=== PATIENT | male | born 1980 | race Two or more races ===

== ENCOUNTER 2025-03-13 13:16 | Inpatient (IN) | payer OTHER ==
[~2025-03-13] VITALS: Ht 172.7 cm; Wt 108.4 kg
[~2025-03-13 13:16] MED LIST: METRONIDAZOLE 500 MG PREMIX 100 ML IV SCH
[2025-03-13 13:26] VITALS: O2SAT 98
[2025-03-13] MEDS: MAGNESIUM/ALUMINUM HYDROXIDE/SIMETHICONE 30ML UDC PO ONE (14:02)
[2025-03-13] MEDS: KETOROLAC 15MG/ML VIAL IV ONE (14:43)
[2025-03-13] MEDS: SODIUM CHLORIDE 0.9% 1,000 ML IV ONE (14:44)
[2025-03-13] MEDS: ONDANSETRON HCL 4MG/2ML INJ IV ONE ×2 (14:44→16:42)
[2025-03-13] MEDS: ACETAMINOPHEN 325MG TABLET PO ONE (14:46)
[2025-03-13 15:07] LABS: HEMATOCRIT. 45.1 % (42.0-52.0); HEMOGLOBIN. 14.8 g/dL (14.0-18.0); MEAN PLATELET VOLUME 9.6 fl (7.4-10.4); PLATELET 311 x1000/uL (130-400); RED BLOOD CELL COUNT 5.03 mill/uL (4.7-6.1); RED CELL DISTRIBUTION WIDTH 14.2 % (11.6-14.6)
[2025-03-13 15:21] LABS: CREATININE 0.8 mg/dL (0.6-1.3)
[2025-03-13 15:22] LABS: UREA NITROGEN BLOOD 8 mg/dL (9-23)
[2025-03-13 15:23] LABS: ASPARTATE AMINOTRANSFERASE 442 IU/L (<34)
[2025-03-13 15:24] LABS: BILIRUBIN DIRECT 3.4 mg/dL (<=3.0); BILIRUBIN TOTAL 5.2 mg/dL (0.1-1.0); PROTEIN TOTAL 7.6 g/dL (6.0-8.3)
[2025-03-13 15:47] LABS: CLARITY URINE CLEAR (CLEAR); COLOR URINE DARK YELLOW (YELLOW); GLUCOSE URINE NEGATIVE (NEGATIVE); KETONES URINE 3+ (NEGATIVE); LEUKOCYTE ESTERASE URINE 1+ (NEGATIVE); NITRITE URINE POSITIVE (NEGATIVE); OCCULT BLOOD URINE TRACE (NEGATIVE); PH URINE 5.0 (4.5-8.0); PROTEIN URINE 2+ (NEGATIVE); SPECIFIC GRAVITY URINE 1.026 (1.005-1.030); UROBILINOGEN URINE 1.0 E.U./dL (0.2-1.0)
[2025-03-13 16:00] LABS: BACTERIA URINE 1+; RBC URINE 0-2 /hpf (0-2); SQUAMOUS EPITHELIAL CELL URINE FEW /lpf (RARE/1+)
[2025-03-13 16:09] LABS: LYMPHOCYTES % MANUAL 7.0 % (20.0-50.0); MONOCYTES % MANUAL 7.0 % (2.0-8.0); NEUTROPHILS % MANUAL 86.0 % (45.0-75.0); PLATELET ESTIMATE NORMAL
[2025-03-13] MEDS: SODIUM CHLORIDE 0.9% (SEPSIS BOLUS) IV ONE (16:39)
[2025-03-13] MEDS: METRONIDAZOLE 500 MG PREMIX 100 ML IV ONE (16:42)
[2025-03-13] MEDS: MORPHINE SULFATE 4 MG/ML INJ (FOR IV/IM USE) IV ONE (16:43)
[2025-03-13] MEDS: CEFTRIAXONE 2GM/50ML 50 ML IV ONE (17:51)
[2025-03-13] MEDS ORDERED: CLONIDINE 0.1MG TABLET PO PRN (19:45)
[2025-03-13] MEDS ORDERED: GUAIFENESIN 200MG/10ML SUGAR FREE UDC PO PRN (19:45)
[2025-03-13] MEDS ORDERED: DOCUSATE SODIUM 100MG CAPSULE PO PRN (19:45)
[2025-03-13] MEDS ORDERED: SODIUM CHLORIDE 0.45% 1,000 ML IV SCH (19:45)
[2025-03-13] MEDS ORDERED: MAGNESIUM/ALUMINUM HYDROXIDE/SIMETHICONE 30ML UDC PO PRN (19:45)
[2025-03-13] MEDS ORDERED: LEVOFLOXACIN 500MG PREMIX 100 ML IV SCH (19:45)
[2025-03-13] MEDS ORDERED: IPRATROPIUM/ALBUTEROL 0.5-3(2.5)MG/3ML NEB HHN PRN (19:45)
[2025-03-13] MEDS ORDERED: ONDANSETRON HCL 4MG/2ML INJ IV PRN (19:45)
[2025-03-13] MEDS ORDERED: ACETAMINOPHEN 325MG TABLET PO PRN (19:45)
[2025-03-13] MEDS ORDERED: NALOXONE HCL 0.4MG/ML VIAL IV PRN (20:00)
[2025-03-13 20:15] VITALS: BP 128/74; PULSE 64; RESP 18; TEMP 36.6404
[2025-03-13] MEDS: MORPHINE SULFATE 4 MG/ML INJ (FOR IV/IM USE) IV PRN (22:21)
[2025-03-13] MEDS: ENOXAPARIN 30MG/0.3ML SYR SUBCUT SCH (22:41)
[2025-03-13] MEDS: DEXT 5%/0.45% NACL 1000ML 1,000 ML IV SCH (23:12)
[2025-03-13] MEDS: LEVOFLOXACIN 750MG PREMIX 150ML IV SCH (23:12)
[2025-03-14] VITALS (7 sets, daily range): BP systolic 116–136; BP diastolic 72–79; PULSE 63–102; RESP 16–20; TEMP 36.2–36.6; O2SAT 96–98
[2025-03-14] MEDS: METRONIDAZOLE 500 MG PREMIX 100 ML IV SCH (03:01)
[2025-03-14 08:37] LABS: BASOPHILS % 0.1 % (0.0-2.0); EOSINOPHILS % 0.2 % (0.0-5.0); HEMATOCRIT. 37.4 % (42.0-52.0); HEMOGLOBIN. 12.6 g/dL (14.0-18.0); LYMPHOCYTES % 10.7 % (20.0-50.0); MEAN PLATELET VOLUME 9.4 fl (7.4-10.4); MONOCYTES % 7.0 % (2.0-8.0); NEUTROPHILS % 82.0 % (40.0-76.0); PLATELET 227 x1000/uL (130-400); RED BLOOD CELL COUNT 4.24 mill/uL (4.7-6.1); RED CELL DISTRIBUTION WIDTH 14.0 % (11.6-14.6)
[2025-03-14 09:18] LABS: T4 FREE 1.13 ng/dL (0.89-1.76)
[2025-03-14 09:21] LABS: CREATININE 0.6 mg/dL (0.6-1.3); TRIGLYCERIDE 112 mg/dL (0-150); UREA NITROGEN BLOOD 7 mg/dL (9-23)
[2025-03-14 09:22] LABS: LDL CHOLESTEROL 80 mg/dL (5-100)
[2025-03-14 09:30] LABS: INR 1.0
[2025-03-14] MEDS: ENOXAPARIN 40MG/0.4ML SYR SUBCUT SCH (10:00)
[2025-03-14] MEDS: ACETAMINOPHEN 325MG TABLET PO PRN (11:23)
[2025-03-14] MEDS ORDERED: DEXT 5%/LACTATED RINGERS 1,000 ML IV SCH (12:00)
[2025-03-14] MEDS: LACTATED RINGERS 1,000 ML IV SCH (13:37)
[2025-03-14 22:21] LABS: TROPONIN I HIGH SENSITIVITY < 4 ng/L (3.0-53)
[2025-03-14 22:23] LABS: ASPARTATE AMINOTRANSFERASE 267 IU/L (<34); BILIRUBIN DIRECT 1.0 mg/dL (<=3.0); BILIRUBIN TOTAL 1.8 mg/dL (0.1-1.0); PROTEIN TOTAL 6.1 g/dL (6.0-8.3)
[2025-03-15] VITALS: BP 123/74; PULSE 98; RESP 20; TEMP 36.5; O2SAT 96
[2025-03-15 04:00] VITALS: BP 115/73; PULSE 104; RESP 20; TEMP 36.5; O2SAT 96
[2025-03-15] MEDS: PANTOPRAZOLE 40MG DR TABLET PO SCH (06:33)
[2025-03-15 07:39] LABS: BASOPHILS % 0.1 % (0.0-2.0); EOSINOPHILS % 0.4 % (0.0-5.0); HEMATOCRIT. 36.1 % (42.0-52.0); HEMOGLOBIN. 12.2 g/dL (14.0-18.0); LYMPHOCYTES % 9.4 % (20.0-50.0); MEAN PLATELET VOLUME 9.9 fl (7.4-10.4); MONOCYTES % 8.3 % (2.0-8.0); NEUTROPHILS % 81.8 % (40.0-76.0); PLATELET 204 x1000/uL (130-400); RED BLOOD CELL COUNT 4.10 mill/uL (4.7-6.1); RED CELL DISTRIBUTION WIDTH 13.6 % (11.6-14.6)
[2025-03-15 07:56] LABS: UREA NITROGEN BLOOD < 5 mg/dL (9-23)
[2025-03-15 07:58] LABS: CREATININE 0.7 mg/dL (0.6-1.3)
[2025-03-15 08:00] VITALS: BP 130/77; PULSE 83; RESP 18; TEMP 36.2; O2SAT 97
[2025-03-15 08:00] LABS: ASPARTATE AMINOTRANSFERASE 207 IU/L (<34)
[2025-03-15 08:01] LABS: BILIRUBIN DIRECT 1.0 mg/dL (<=3.0); BILIRUBIN TOTAL 1.9 mg/dL (0.1-1.0); PHOSPHORUS 2.2 mg/dL (2.5-4.9); PROTEIN TOTAL 6.1 g/dL (6.0-8.3)
[2025-03-15 08:40] LABS: HEPATITIS A AB IGM NEGATIVE (Negative)
[2025-03-15 08:41] LABS: HEPATITIS B CORE AB IGM NEGATIVE (Negative); HEPATITIS C AB NON REACTIVE (Neg) (Negative)
[2025-03-15] MEDS ORDERED: METR-167 MT (12:17)
[2025-03-15] MEDS ORDERED: CIPR500S3 PO (12:17)
[2025-03-15] MEDS ORDERED: IBUP-2030 MT (12:17)
[2025-03-15 16:00] VITALS: BP 127/74; PULSE 100; RESP 18; TEMP 36.2; O2SAT 99
[2025-03-15 17:04] VITALS: BP 127/74; PULSE 100; RESP 18; TEMP 97.1
[2025-03-15] MEDS ORDERED: ENOXAPARIN 30MG/0.3ML SYR SUBCUT SCH (21:00)
== END 2025-03-15 19:50 | disposition home or self-care (01) | DRG 444 ==
LOC: ER 13:42 → 7EST 19:09 → EDBEDREQTM 19:29 → EDBEDREQ 19:29 → ENRESERV 20:02
PROVIDERS: ADMIT Internal Medicine; ATTEND Internal Medicine
DX: K81.0 Acute cholecystitis (principal); K85.90 Acute pancreatitis without necrosis or infection, unspecified; N39.0 Urinary tract infection, site not specified; E80.6 Other disorders of bilirubin metabolism; D72.829 Elevated white blood cell count, unspecified; K76.0 Fatty (change of) liver, not elsewhere classified; R74.01 Elevation of levels of liver transaminase levels; R74.8 Abnormal levels of other serum enzymes; Z88.0 Allergy status to penicillin; Z79.899 Other long term (current) drug therapy
CPT/HCPCS: 36415; 71045; 74176; 74181; 76705; 80048; 80061; 80076; 81003; 83036; 83605; 83735; 84100; 84439; 84443; 84484; 85025; 86705; 86709; 87340; 93005; 99291; A4606; J0696; J1650; J1885; J1956; J2270; J2405; J3490; J7030